=== PATIENT | female | born 1940 | race Caucasian/White ===

== ENCOUNTER 2018-12-13 11:06 | Day surgery (SDC) | payer MEDICARE, OTHER ==
[~2018-12-13] VITALS: Ht 157.5 cm; Wt 70.0 kg
[~2018-12-13 11:06] MED LIST: AMLO5 PO; ASPI325EC PO; Azor 5-20 MG T1 EACH PO; CHOL10002 PO; ERGO400 PO; FURO20; Lasix20 MG PO; Lovastatin20 MG PO; NEBI5 PO; OLME20 PO
[2018-12-13] MEDS ORDERED: ROPI.25 (12:10)
--- NOTE | 2018-12-13 13:14 | NUR ---
12/13/18 1314 Maryellen Arriola PT AND UPDATED OF DELAY IN HER START TIME DUE TO LONG CASES TODAY. WARM BLANKET GIVEN TO PT, CALL LIGHT IN REACH, BED IN LOW/LOCKED POSTION.
== END 2018-12-13 15:16 | disposition home or self-care (01) ==
LOC: ORSCSDS 11:06
PROVIDERS: Surgery
PROC: 0DBM8ZX Excision of Descending Colon, Via Natural or Artificial Opening Endoscopic, Diagnostic (ICD-10-PCS; principal; 2018-12-13 12:30)
PROC: 0DBH8ZX Excision of Cecum, Via Natural or Artificial Opening Endoscopic, Diagnostic (ICD-10-PCS; principal; 2018-12-13 12:30)
PROC: 0DBL8ZX Excision of Transverse Colon, Via Natural or Artificial Opening Endoscopic, Diagnostic (ICD-10-PCS; principal; 2018-12-13 12:30)
PROC: 0DBN8ZX Excision of Sigmoid Colon, Via Natural or Artificial Opening Endoscopic, Diagnostic (ICD-10-PCS; principal; 2018-12-13 12:30)
PROC: 3E0H8GC Introduction of Other Therapeutic Substance into Lower GI, Via Natural or Artificial Opening Endoscopic (ICD-10-PCS; principal; 2018-12-13 12:30)
DX: Z12.11 Encounter for screening for malignant neoplasm of colon (principal); Z86.010 Personal history of colon polyps; D12.0 Benign neoplasm of cecum; D12.3 Benign neoplasm of transverse colon; D12.4 Benign neoplasm of descending colon; D12.5 Benign neoplasm of sigmoid colon; K57.30 Diverticulosis of large intestine without perforation or abscess without bleeding; I10 Essential (primary) hypertension; K21.9 Gastro-esophageal reflux disease without esophagitis; Z79.899 Other long term (current) drug therapy
CPT/HCPCS: 88305; J7120

== ENCOUNTER 2019-12-20 09:13 | Day surgery (SDC) | payer MEDICARE, OTHER ==
[~2019-12-20] VITALS: Ht 157.5 cm; Wt 71.0 kg
[~2019-12-20 09:13] MED LIST changes: +ROPI.25
[2019-12-20] MEDS ORDERED: ATEN25 PO (09:55)
[2019-12-20] MEDS ORDERED: OLME20 PO (09:56)
--- NOTE | 2019-12-20 10:00 | NUR ---
12/20/19 1000 Dayday Salazar 1ST IV ATTEMP IN RIGHT HAND. VEIN BLEW. PT TOW.
== END 2019-12-20 11:14 | disposition home or self-care (01) ==
LOC: ORSCSDS 09:13
PROVIDERS: Surgery
PROC: 0DBN8ZX Excision of Sigmoid Colon, Via Natural or Artificial Opening Endoscopic, Diagnostic (ICD-10-PCS; principal; 2019-12-20 10:30)
DX: Z86.010 Personal history of colon polyps (principal); Z83.71 Family history of colonic polyps; D12.5 Benign neoplasm of sigmoid colon; K63.5 Polyp of colon; K57.30 Diverticulosis of large intestine without perforation or abscess without bleeding; E78.5 Hyperlipidemia, unspecified; I10 Essential (primary) hypertension; Z79.82 Long term (current) use of aspirin; Z79.899 Other long term (current) drug therapy
CPT/HCPCS: 88305; J2704; J7120

== ENCOUNTER 2021-07-19 06:07 | Day surgery (SDC) | payer MEDICARE, OTHER ==
[~2021-07-19] VITALS: Ht 157.5 cm; Wt 72.5 kg
[~2021-07-19 06:07] MED LIST changes: +ATEN25 PO; -ROPI.25; +ROPI.25 PO
--- NOTE | 2021-07-19 06:45 | NUR ---
PATIENT STATES HER BP IS HIGH TODAY BECAUSE IT ALWAYS RUNS HIGH IN MEDICAL SETTINGS. SHE STATES IT IS CONTROLLED WHEN SHE IS AT HOME AND AT REST. DENIES HEADACHE. WILL REPORT BP TO DR RECIO WHEN HE ARRIVES THIS MORNING.
--- NOTE | 2021-07-19 07:05 | NUR ---
DR RECIO NOTIFIED OF HIGH BP THIS MORNING. PATIENT IS TO PROCEED WITH PROCEDURE PLANNED PER DR RECIO.
--- NOTE | 2021-07-19 07:25 | NUR ---
07/19/21 0725 Fawn Lynch History, Chart, Medications and Allergies reviewed before start of procedure. Patient confirms NPO status and agrees with scheduled surgery. 3-LEAD EKG REVIEWED WITH PHYSICIAN PRIOR TO START OF PROCEDURE. MONITOR INTACT WITH CONTINUOUS PULSE OXIMETRY AND INTERMITTENT BP. PATIENT DETERMINED TO BE ASA APPROPRIATE FOR PROPOFOL SEDATION PRIOR TO START OF PROCEDURE BY DR. RECIO.
--- NOTE | 2021-07-19 08:21 | NUR ---
Patient up to Ambulate independently. Gait steady. Discharge instructions reviewed with patient. Patient verbalizes understanding. Copy given to patient to take home. Patient States Post-Procedure ride home has been arranged. Discharged via wheelchair to private car for ride home. ALL BELONINGS RETUNRNED TO PATIENT.
== END 2021-07-19 08:20 | disposition home or self-care (01) ==
LOC: ORSCMMR 06:07 → ORD 07:30 → ORSCMMR 08:20
PROVIDERS: Surgery
PROC: 0DBN8ZX Excision of Sigmoid Colon, Via Natural or Artificial Opening Endoscopic, Diagnostic (ICD-10-PCS; principal; 2021-07-19 07:30)
DX: Z15.09 Genetic susceptibility to other malignant neoplasm (principal); D12.5 Benign neoplasm of sigmoid colon; Z86.010 Personal history of colon polyps; Z80.0 Family history of malignant neoplasm of digestive organs; N18.30 Chronic kidney disease, stage 3 unspecified; E78.5 Hyperlipidemia, unspecified; I10 Essential (primary) hypertension; Z79.899 Other long term (current) drug therapy
CPT/HCPCS: 88305; J2704; J7120

== ENCOUNTER 2022-11-14 07:16 | Day surgery (SDC) | payer MEDICARE, OTHER ==
[~2022-11-14] VITALS: Ht 157.5 cm; Wt 72.1 kg
[2022-11-14] MEDS ORDERED: FURO20 (07:51)
== END 2022-11-14 09:22 | disposition home or self-care (01) ==
LOC: ORSCSDS 07:16
PROVIDERS: Surgery
PROC: 0DBM8ZX Excision of Descending Colon, Via Natural or Artificial Opening Endoscopic, Diagnostic (ICD-10-PCS; principal; 2022-11-14 08:30)
PROC: 0DBN8ZX Excision of Sigmoid Colon, Via Natural or Artificial Opening Endoscopic, Diagnostic (ICD-10-PCS; principal; 2022-11-14 08:30)
DX: D12.6 Benign neoplasm of colon, unspecified (principal); Z86.010 Personal history of colon polyps; D12.4 Benign neoplasm of descending colon; D12.5 Benign neoplasm of sigmoid colon; K57.30 Diverticulosis of large intestine without perforation or abscess without bleeding; I12.9 Hypertensive chronic kidney disease with stage 1 through stage 4 chronic kidney disease, or unspecified chronic kidney disease; N18.30 Chronic kidney disease, stage 3 unspecified; E78.5 Hyperlipidemia, unspecified; Z79.899 Other long term (current) drug therapy
CPT/HCPCS: 88305; J2704; J7120

== ENCOUNTER 2022-12-04 13:39 | Inpatient (IN) | payer MEDICARE, OTHER ==
[~2022-12-04] VITALS: Ht 160 cm; Wt 71.3 kg
[~2022-12-04 13:39] MED LIST changes: +FURO20 PO; +LOVA40 PO; -Lovastatin20 MG PO; -ROPI.25 PO; +ROPI1 PO
[2022-12-04 13:55] LABS: BASOPHILS ABSOLUTE AUTO 0.04 K/mm3 (0.00-0.23); BASOPHILS PERCENT AUTO 0 % (0-2); EOSINOPHILS ABSOLUTE AUTO 0.04 K/mm3 (0.00-0.68); EOSINOPHILS PERCENT AUTO 0 % (0-6); Hematocrit 38.4 % (33.0-51.0); Hemoglobin 12.5 g/dL (11.5-16.0); IMMATURE GRAN ABSOLUTE AUTO 0.04 K/mm3 (0.00-0.10); IMMATURE GRAN PERCENT AUTO 0 % (0-1); LYMPHOCYTES ABSOLUTE AUTO 2.61 K/mm3 (0.84-5.20); LYMPHOCYTES PERCENT AUTO 18 % (21-46); MONOCYTES ABSOLUTE AUTO 0.41 K/mm3 (0.16-1.47); MONOCYTES PERCENT AUTO 3 % (4-13); Mean Corpuscular HGB 30.1 pg (26.0-34.0); Mean Corpuscular HGB Conc 32.6 g/dL (31.5-36.5); Mean Corpuscular Volume 93 fL (80-100); Mean Platelet Volume 11.6 fL (9.1-12.4); NEUTROPHILS ABSOLUTE AUTO 11.15 K/mm3 (1.96-9.15); NEUTROPHILS PERCENT AUTO 78 % (41-73); Platelet Count 214 K/mm3 (150-400); RDW Coefficient Variation 13.9 % (11.7-14.2); RDW Standard Deviation 47.2 fL (35.1-46.3); Red Blood Cell Count 4.15 M/mm3 (3.80-5.20); White Blood Cell Count 14.29 K/mm3 (4.00-11.30)
[2022-12-04 14:12] LABS: Albumin, Blood 3.4 g/dL (3.4-5.0); Albumin/Globulin Ratio 1.1 (0.8-1.8); Bilirubin, Total 1.2 mg/dL (0.1-1.0); Bun/Creatinine Ratio 20.2 (12.0-20.0); Calcium, Blood 8.3 mg/dL (8.5-10.1); Creatinine, Blood 0.99 mg/dL (0.40-1.00); Globulin, Blood 3.2 g/dL (2.2-4.0); Potassium, Blood 3.1 mmol/L (3.5-5.5); Total Protein, Blood 6.6 g/dL (6.4-8.2)
--- NOTE | 2022-12-04 17:45 | NUR ---
phone call with Dr. Blackman - reviewed pt's vital signs. Dr. Blakcman with orders to infuse 500 mls of IV fluid and then recheck lactic acid in 1 hr. At this time pt doesn't meet SIRS criteria.
--- NOTE | 2022-12-04 19:31 | NUR ---
LATE ENTRY: PT ARRIVED TO MEDICAL FLOOR AT 1730, SHE IS ALERT AND ORIENTED X4. PT TRANSFERRED FROM ER [facility] TO MEDICAL FLOOR BED. SKIN ASSESSMENT COMPLETED WITH DARNELL Morris RN. NO SKIN ISSUES. PT HAS DAUGHTER GERRY, WHO IS ALSO POA, AT BEDSIDE. SHE IS CONTINENT OF URINE, AND TRANSFERS WITH SBA TO BSC. IV ACCESS TO RIGHT AC. CALL LIGHT WITHIN REACH, BED ALARM ON. LUNGS CLEAR. BOWEL TONES TYMPANIC, ABD DISTENDED. RATING PAIN 6/10. NAUSEOUS. NPO. RN WILL CONTINUE TO MONITOR AND GIVE REPORT TO ONCOMING NURSE.
[2022-12-05 05:18] LABS: BASOPHILS ABSOLUTE AUTO 0.03 K/mm3 (0.00-0.23); BASOPHILS PERCENT AUTO 0 % (0-2); EOSINOPHILS PERCENT AUTO 0 % (0-6); Hematocrit 37.7 % (33.0-51.0); Hemoglobin 12.2 g/dL (11.5-16.0); IMMATURE GRAN ABSOLUTE AUTO 0.03 K/mm3 (0.00-0.10); IMMATURE GRAN PERCENT AUTO 0 % (0-1); LYMPHOCYTES ABSOLUTE AUTO 0.59 K/mm3 (0.84-5.20); LYMPHOCYTES PERCENT AUTO 5 % (21-46); MONOCYTES ABSOLUTE AUTO 0.58 K/mm3 (0.16-1.47); MONOCYTES PERCENT AUTO 5 % (4-13); Mean Corpuscular HGB Conc 32.4 g/dL (31.5-36.5); Mean Corpuscular Volume 93 fL (80-100); Mean Platelet Volume 11.5 fL (9.1-12.4); NEUTROPHILS ABSOLUTE AUTO 10.28 K/mm3 (1.96-9.15); NEUTROPHILS PERCENT AUTO 89 % (41-73); Platelet Count 168 K/mm3 (150-400); RDW Coefficient Variation 14.4 % (11.7-14.2); RDW Standard Deviation 49.3 fL (35.1-46.3); Red Blood Cell Count 4.07 M/mm3 (3.80-5.20); White Blood Cell Count 11.51 K/mm3 (4.00-11.30)
[2022-12-05 05:42] LABS: Bilirubin, Total 3.3 mg/dL (0.1-1.0); Bun/Creatinine Ratio 23.1 (12.0-20.0); Calcium, Blood 7.9 mg/dL (8.5-10.1); Creatinine, Blood 0.95 mg/dL (0.40-1.00); Globulin, Blood 3.1 g/dL (2.2-4.0); Potassium, Blood 4.4 mmol/L (3.5-5.5); Total Protein, Blood 6.1 g/dL (6.4-8.2)
--- NOTE | 2022-12-05 07:45 | NUR ---
SHIFT SUMMARY NOC PT A/O X 4. PT ADMIT FROM ED WITH DX OF ACUTE PANCREATITIS BEFORE SHIFT CHANGE. PT HAD C/O OF N/V AND WAS MEDICATED PER EMAR. PT IS NPO. PT HAD AN EPISODE OF DESAT ON RA DURING SHIFT AND WAS PUT ON 3L/NC WITH SPO2 > 93%. PT HAS IV FLUIDS RUNNINGS @ 125 MLS/HR. PT HAD ELEVATED BP DURING AM SHIFT CHANGE AND ONCOMING NURSE IS NOTIFYING HOSPITALIST. PT HAD A CRITICAL LACTIC ACID OF 3.5 DOWN FROM 3.9 PREVIOUS NIGHT. WCTM. PT IS CURRENTLY IN BED WITH CARE TRANSFERRED TO DAY SHIFT RN.
--- NOTE | 2022-12-05 11:12 | NUR ---
"Spiritual Care | Pt. Request Pt. is awake in bed and welcomes my visit. Pt. is pleasant but displays evidence of abdominal discomfort. With empathy and a calming presence am able to establish raaport. Pt. verbalizes anticipation of an MRI and communicates confidence in the doctors and the technicians who will Identify the source of her problem. [place] with the Pt. Pt. verbalizes gratitude for the spiritual care visit."
--- NOTE | 2022-12-05 18:45 | NUR ---
SHIFT SUMMARY PT TRANSFERRED FROM MEDICAL FLOOR @ APPROX 1745 FOR HIGH BLOOD PRESSURES. PT SBP IN THE 210'S. PHONE CALL TO DR VILLALPANDO REGARDING PT BP. TELEPHONE ORDERS FOR IV HYDRALIZINE 10MG Q4H PRN AND PT'S HOME PO ATENOLOL 25MG DAILY TO START IN THE AM. PT C/O ABD IN THE MID UPPER QUADRANTS. PT MEDICATED WITH PRN ANALGESICS PER EMAR AND. RECEIVED IN THE REPORT THAT THE PT IS MILDLY CONFUSED AND HAD GOTTEN OUT OF BED WALKING DOWN THE HALLWAY. BED ALARM ON. PT ENCOURAGED TO CALL FOR ANY NEEDS AND PRIOR TO GETTING OUT OF BED. PT ON TITRATED FROM 3 TO 2L VIA NC. O2 SAT >92%. NO RESPIRATORY DISTRESS NOTED. PT AND DAUGHTER AT BEDSIDE, THEY BOTH STATE PT IS FORGETFUL AT HOME, BUT DAUGHTER IS UNSURE IF CONFUSION IS NORMAL FOR PT SHE DOES NOT LIVE IN TOWN. WILL CONTINUE TO CARE FOR PT AND REPORT TO ONCOMING RN.
--- NOTE | 2022-12-06 00:46 | NUR ---
ASSUMED PT CARE FROM CESAR HUANG AT 2300. PT IS VERY RESISTANT TO BEING MOVED STATING "YOU CAN'T JUST COME INTO MY HOUSE AND MAKE ME MOVE" ATTEMPTED TO REORIENT PT WITHOUT SUCCESS. PT MOVED TO PCU 9. PT CONTINUES TO STATE "YOU CAN'T JUST COME INTO MY HOUSE AND DO THIS" ALL ATTEMPTS OT REORIENT THE PT HAVE FAILED. PT INSISTING ON AMBULATING TO BATHROOM WITHOUT WAITING FOR IV POLE TO ACCOMPANY, WHILE ATTEMPTING TO PREVENT IV FROM BEING PULLED OUT PT STATES "I'M GOING TO BOP YOU" IV DISCONNECTED FOR AMBULATING. AFTER RETURNING TO BED PT REMOVING TELE LEADS, NC, AND PULSE OXIMETRY, REFUSING TO ALLOW REPLACEMENT. SECURITY IN TO SPEAK WITH PT, PT STATES "GO AWAY" AND CLOSES EYES. CONTINUES TO REFUSE MONITORS. DR. MCKEON CALLED, RECEIVED ORDER FOR ATIVAN IV. ATIVAN ADMINISTERED WITH ASSISTANCE OF SECURITY, PT ALLOWING TELEMETRY, NC, AND O2 TO BE REPLACED AT THIS TIME. WILL MONITOR.
[2022-12-06 05:10] LABS: BASOPHILS ABSOLUTE AUTO 0.03 K/mm3 (0.00-0.23); BASOPHILS PERCENT AUTO 0 % (0-2); EOSINOPHILS PERCENT AUTO 0 % (0-6); Hematocrit 35.9 % (33.0-51.0); Hemoglobin 11.8 g/dL (11.5-16.0); IMMATURE GRAN ABSOLUTE AUTO 0.08 K/mm3 (0.00-0.10); IMMATURE GRAN PERCENT AUTO 1 % (0-1); LYMPHOCYTES ABSOLUTE AUTO 1.05 K/mm3 (0.84-5.20); LYMPHOCYTES PERCENT AUTO 7 % (21-46); MONOCYTES ABSOLUTE AUTO 0.78 K/mm3 (0.16-1.47); MONOCYTES PERCENT AUTO 5 % (4-13); Mean Corpuscular HGB 30.1 pg (26.0-34.0); Mean Corpuscular HGB Conc 32.9 g/dL (31.5-36.5); Mean Corpuscular Volume 92 fL (80-100); Mean Platelet Volume 12.4 fL (9.1-12.4); NEUTROPHILS PERCENT AUTO 87 % (41-73); Platelet Count 173 K/mm3 (150-400); RDW Coefficient Variation 14.7 % (11.7-14.2); RDW Standard Deviation 49.8 fL (35.1-46.3); Red Blood Cell Count 3.92 M/mm3 (3.80-5.20); White Blood Cell Count 15.34 K/mm3 (4.00-11.30)
[2022-12-06 05:30] LABS: Albumin, Blood 2.8 g/dL (3.4-5.0); Albumin/Globulin Ratio 0.8 (0.8-1.8); Bilirubin, Total 4.1 mg/dL (0.1-1.0); Calcium, Blood 8.2 mg/dL (8.5-10.1); Creatinine, Blood 0.64 mg/dL (0.40-1.00); Globulin, Blood 3.4 g/dL (2.2-4.0); Potassium, Blood 4.3 mmol/L (3.5-5.5); Total Protein, Blood 6.2 g/dL (6.4-8.2)
--- NOTE | 2022-12-06 06:39 | NUR ---
PT HAS REMAINED CONFUSED DURING THIS SHIFT. PLEASENTLY CONFUSED AT TIMES, AT OTHER TIMES AGGITATED AND PARNOID. PT ATTEMPTING TO WALK DOWN HALLWAYS AND "GO SLEEP IN MY BED". PT IS NOT ABLE TO BE REDIRECTED. MEDICATED WITH IV ATIVAN, SEE EMAR. PT IS MORE COMPLIANT AFTER RECEIVING ATIVAN IS ALLOWS SELF TO BE RETURNED TO BED. MEDICATED FOR HYPERTENSION X 1, SEE EMAR. O2 SATS > 92% WHEN 02 ON, NEED FREQUENT REDIRECTING TO KEEP O2 ON. HR SR IN 90'S. DENIES CHEST PAIN. CALL LIGHT IN REACH. BED ALARM ON FOR SAFETY.
--- NOTE | 2022-12-06 17:54 | NUR ---
SHIFT SUMMARY PT REMAINS CONFUSED. PT CONTINUES TO JUMP OUT OF BED THROUGHOUT SHIFT AND RUN TO THE BATHROOM WITHOUT CALLING FOR HELP. AT TIMES, PT IS AGITATED AND STATES SHE WANTS TO LEAVE. PT EASIER TO REDIRECT THIS SHIFT. HR HAS REMAINED NSR. BP ELEVATED MOST OF SHIFT, BUT HAS IMPROVED THIS EVENING. PT FEBRILE AT 102.4 THAT DECREASED WITH MEDICATION ADMINISTRATION. PT STATES SHE FEELS BETTER TONIGHT AND HAS DENIED ANY PAIN. PT ADVANCED TO FULL LIQUID DIET AND TOLERATING WELL. WILL CONTINUE TO MONITOR AND REPORT TO ONCOMING RN. BED ALARM ON.
[2022-12-07 03:18] LABS: Hematocrit 33.6 % (33.0-51.0); Mean Corpuscular HGB 29.6 pg (26.0-34.0); Mean Corpuscular HGB Conc 32.7 g/dL (31.5-36.5); Mean Corpuscular Volume 91 fL (80-100); Mean Platelet Volume 12.8 fL (9.1-12.4); Platelet Count 158 K/mm3 (150-400); RDW Coefficient Variation 14.8 % (11.7-14.2); RDW Standard Deviation 49.7 fL (35.1-46.3); Red Blood Cell Count 3.71 M/mm3 (3.80-5.20); White Blood Cell Count 14.22 K/mm3 (4.00-11.30)
[2022-12-07 03:39] LABS: BAND PERCENT MAN 5 % (0-8); BASOPHILS PERCENT MAN 0 % (0-2); EOSINOPHILS PERCENT MAN 0 % (0-6); LYMPHOCYTES ABSOLUTE MAN 0.99 K/mm3 (0.84-5.20); LYMPHOCYTES PERCENT MAN 7 % (21-46); MONOCYTES ABSOLUTE MAN 0.85 K/mm3 (0.16-1.47); MONOCYTES PERCENT MAN 6 % (4-13); NEUTROPHILS ABSOLUTE MAN 12.37 K/mm3 (1.96-9.15); SEG NEUTROPHILS PERCENT MAN 82 % (41-73); TOTAL CELLS COUNTED 100
[2022-12-07 04:30] LABS: Albumin, Blood 2.3 g/dL (3.4-5.0); Albumin/Globulin Ratio 0.7 (0.8-1.8); Bilirubin, Total 2.4 mg/dL (0.1-1.0); Bun/Creatinine Ratio 19.4 (12.0-20.0); Calcium, Blood 7.8 mg/dL (8.5-10.1); Creatinine, Blood 0.67 mg/dL (0.40-1.00); Globulin, Blood 3.3 g/dL (2.2-4.0); Potassium, Blood 3.2 mmol/L (3.5-5.5); Total Protein, Blood 5.6 g/dL (6.4-8.2)
--- NOTE | 2022-12-07 05:33 | NUR ---
SHIFT SUMMARY: INTERMITTENT ORIENTATION X 1-3. COOPERATIVE AND PLEASANT. MEDICATED FOR ANXIETY X 2, SEE EMAR. UP TO BATHROOM TO VOID APROXIMATELY Q2H WITH WEAK GAIT. MEDICATED FOR CHRONIC DIARRHEA X 1 WITH GOOD RESULTS PER PT. NO ACUTE CHANGES OVER NIGHT. BED ALARM ON FOR SAFETY.
--- NOTE | 2022-12-07 17:11 | NUR ---
SHIFT SUMMARY PT REMAINS ALERT AND ORIENTATION HAS IMPROVED SINCE THIS AM. PT ANSWERING QUESTIONS APPROPRIATELY. HR REMAINS NSR. BP ELEVATED AT TIMES, BUT IMPROVES WITH MEDICATION ADMINISTRATION. PT DENIES ANY PAIN THIS SHIFT, BUT STATES NOT FEELING WELL OVERALL. SHE STATES SHE IS "SOMEWHAT ACHEY". PT MEDICATED WITH TYLENOL AND STATES IMPROVEMENT. PT UP WITH SBA TO BATHROOM NEEDED. BED ALARM ON FOR SAFETY. WILL CONTINUE TO MONITOR AND REPORT TO ONCOMING RN.
--- NOTE | 2022-12-07 18:40 | NUR ---
UPDATE PT SET OFF BED ALARM AND TRIES TO LEAVE ROOM. PT STATES SHE NEEDS TO GET HER "GOWN FROM THE NEXT ROOM". ATTEMPTED TO REDIRECT PT AND GET HER BACK TO BED. PT CONFUSED TO WHERE SHE IS AND WHY SHE CANNOT GO HOME. PT BACK TO BED. PT MEDICATED PER EMAR FOR ANXIETY. WILL CONTINUE TO MONITOR.
--- NOTE | 2022-12-07 23:35 | NUR ---
PT HAS BEEN ORIENTED TO SELF ONLY. UNABLE TO REDIRECT. UP TO BATHROOM TO VOID MULTIPLE TIMES, DECLINES ASSISTANCE, AMBULATING WITH SBA. MEDICATED FOR AGGITATED X 2, SEE EMAR DUE TO PT ATTEMPTING TO AMBULATE DOWN HALLWAY. O2 SATS MAINTAINED > 92% ON 2 LPM. HR SR/ST. NO COMPLAINTS OF CHEST PAIN. REPORT CALLED DUGLAS FERNANDEZ RN ON SURGICAL FLOOR.
--- NOTE | 2022-12-08 00:26 | NUR ---
PT ARRIVED TO THE FLOOR FROM PCU 9 AT 2352. THE PT IS AXO X1, TO SELF ONLY UPON TRANSFER. THE PT ARRIVES VIA HOSPITAL BED. THE PT IS ON 3L OXYGEN, O2 SATURATION IS 95%. THE PATIENT IS TACYPNENIC, BUT RESPIRATIONS SLOW WHEN RESTING. THE PATIENT ARRIVES WITH TELE IN PLACE, SINUS/SINUS TACH 90-100'S. PT ORIENTATED TO ROOM. PT IS NOW IN BED WITH THE BED IN THE LOWEST POSITION, BED ALARM AND CALL LIGHT WITHIN REACH. PT DENIES ANY PAIN, CHEST PAIN/PRESSURE UPON TRANSFER.
--- NOTE | 2022-12-08 04:55 | NUR ---
SHIFT SUMMARY; PT IS AXO X2, AND A STANDBY ASSIST TO THE BATHROOM. THE PT IS CONTINENT. CALLED LAST NIGHT DUE TO PT BEING FLUID VOLUME OVERLOADED AND HAVING UPPER AIR WAY WHEEZES, RT GAVE BREATHING TREATMENT W/LITTLE RELIEF. GAVE 1 TIME DOSE OF 40MG LASIX FOR FLUID VOLUME OVERLOAD. PT IS ON 3L NC, SATING 95%. TELE IN PLACE, SINUS RYTHM/SINUS TACH 90-100'S T/O THE NIGHT. PT HAS CRACKLES IN THE BASES OF BOTH LUNGS. PT IS IMPULSIVE AND GETS OUT OF BED WITHOUT ANY REGARD TO HER O2 LINE OR TELE, BED ALARM ON TO ENSURE PT DOES NOT FALL OVER O2 LINE. CURRENTLY THE PT IS SLEEPING IN BED WITH THE BED IN THE LOWEST POSITION AND THE CALL LIGHT AT BEDSIDE.
[2022-12-08 14:47] LABS: Albumin/Globulin Ratio 0.5 (0.8-1.8); Bilirubin, Total 1.4 mg/dL (0.1-1.0); Bun/Creatinine Ratio 16.8 (12.0-20.0); Creatinine, Blood 0.65 mg/dL (0.40-1.00); Globulin, Blood 3.7 g/dL (2.2-4.0); Potassium, Blood 3.1 mmol/L (3.5-5.5); Total Protein, Blood 5.7 g/dL (6.4-8.2)
--- NOTE | 2022-12-08 18:04 | NUR ---
SHIFT SUMMARY: PT A&O X2-3. PT PLEASANT AND COOPERATIVE WITH ALL CARE. PT REMAINS ON FULL LIQUID DIET AND TOLERATING WELL. PT HAS SOME WHEEZING IN LUNGS W/SOME CRACKLES IN BASES. ROCEPHIN AND AZITHROMYCIN D/C AND PLACED ON PO ABX. PT TO POSSIBLY HAVE CHOLECYSTECTOMY TOMORROW. PT TO BE NPO AFTER MIDNIGHT. REPEAT LIPASE DRAWN TODAY WHICH SHOWED MAJOR IMPROVEMENT/WNL. PT IS A SB ASSIST W/FWW. BED ALARM ON FOR SAFETY. PT ON 3 LITERS. POWERGLIDE FLUSHING W/O PAIN, SWELLING, OR REDNESS. NO C/O PAIN THIS SHIFT. CALL LIGHT IN REACH. BED IN LOWEST POSITION. WILL CONTINUE TO MONITOR.
--- NOTE | 2022-12-09 04:47 | NUR ---
AOX3, PLEASANT, VSS, UP TO TOILET MULTIPLE TIMES SBA WITH WALKER. NPO AT MIDNIGHT FOR POSSIBLE PROCEDURE TODAY. INCREASED O2 FROM 2L NC TO 4L NC DUE TO COMPLAINTS OF SOB, ABLE TO RELAX AND SLEEP FOLLOWING INCREASE OF O2. FREQUENT AUDIBLE WHEEZING. RESP THERAPIST AGREES THAT PT SOUNDS LIKE FLUID IS COLLECTING IN LUNGS. MD ORDERED CHEST XR TO ASSESS, AWAITING CXR COMPLETION TO MOVE FORWARD WITH DIURESING. CALLS APPROPRIATELY.
[2022-12-09 05:41] LABS: BASOPHILS ABSOLUTE AUTO 0.04 K/mm3 (0.00-0.23); BASOPHILS PERCENT AUTO 0 % (0-2); EOSINOPHILS ABSOLUTE AUTO 0.01 K/mm3 (0.00-0.68); EOSINOPHILS PERCENT AUTO 0 % (0-6); Hematocrit 31.6 % (33.0-51.0); Hemoglobin 10.3 g/dL (11.5-16.0); IMMATURE GRAN ABSOLUTE AUTO 0.23 K/mm3 (0.00-0.10); IMMATURE GRAN PERCENT AUTO 2 % (0-1); LYMPHOCYTES ABSOLUTE AUTO 0.92 K/mm3 (0.84-5.20); LYMPHOCYTES PERCENT AUTO 7 % (21-46); MONOCYTES ABSOLUTE AUTO 1.55 K/mm3 (0.16-1.47); MONOCYTES PERCENT AUTO 12 % (4-13); Mean Corpuscular HGB 29.4 pg (26.0-34.0); Mean Corpuscular HGB Conc 32.6 g/dL (31.5-36.5); Mean Corpuscular Volume 90 fL (80-100); Mean Platelet Volume 11.7 fL (9.1-12.4); NEUTROPHILS ABSOLUTE AUTO 10.57 K/mm3 (1.96-9.15); NEUTROPHILS PERCENT AUTO 79 % (41-73); Platelet Count 176 K/mm3 (150-400); RDW Coefficient Variation 14.6 % (11.7-14.2); RDW Standard Deviation 48.4 fL (35.1-46.3); White Blood Cell Count 13.32 K/mm3 (4.00-11.30)
[2022-12-09 05:54] LABS: Albumin, Blood 1.9 g/dL (3.4-5.0); Albumin/Globulin Ratio 0.5 (0.8-1.8); Bilirubin, Total 1.4 mg/dL (0.1-1.0); Bun/Creatinine Ratio 15.2 (12.0-20.0); Calcium, Blood 8.2 mg/dL (8.5-10.1); Creatinine, Blood 0.59 mg/dL (0.40-1.00); Total Protein, Blood 5.9 g/dL (6.4-8.2)
--- NOTE | 2022-12-09 17:44 | NUR ---
SHIFT SUMMARY PATIENT A&O X3 MOST OF DAY. PATIENT OCCASSIONALLY CONFUSED ABOUT WHERE SHE IS. PATIENT IMPULSIVE. PATIENT HAS INCREASED CONFUSION INTO THE EVENING. PATIENT IS A SBA WITH A FWW. PATIENT TITRATED TO ROOM AIR, SATURATING AT 95%. DURING WALK TO BATHROOM, PATIETN APPEARED SHORT OF BREATH, O2 SATUATION AT 87% WITH ACTIVITY. PATIENT PLACED ON 2L N/C AND RECOVERED TO 93%. PATIENT NPO AT MIDNIGHT FOR RHEA SCOTT TOMORROW, 12/10/22. DAUGHTER, ILIA GARRETT TO SIGN CONSENT. PATIENT IS EATING AND DRINKING WELL. PATIENT IS VERY PLEASANT AND COOPERATIVE [facility].
--- NOTE | 2022-12-10 05:25 | NUR ---
NPO SINCE MIDNIGHT FOR PENDING PROCEDURE TODAY. FREQUENT URINATION THROUGHOUT THE NIGHT. A0X2-3 DURING SHIFT, PLEASANT. SBA ASSIST TO BATHROOM. TOLERATED PO MEDS WITH WATER PRIOR TO NPO. VSS ON 0-2L OXYGEN NC. NO COMPLAINTS OF PAIN. NO EVENTS OVER NIGHT. BED ALARM ON DUE TO FORGETFULNESS, DOES NOT CALL APPROPRIATELY.
[2022-12-10 05:26] LABS: BASOPHILS ABSOLUTE AUTO 0.04 K/mm3 (0.00-0.23); BASOPHILS PERCENT AUTO 0 % (0-2); EOSINOPHILS ABSOLUTE AUTO 0.03 K/mm3 (0.00-0.68); EOSINOPHILS PERCENT AUTO 0 % (0-6); Hematocrit 30.8 % (33.0-51.0); Hemoglobin 10.2 g/dL (11.5-16.0); IMMATURE GRAN ABSOLUTE AUTO 0.14 K/mm3 (0.00-0.10); IMMATURE GRAN PERCENT AUTO 1 % (0-1); LYMPHOCYTES ABSOLUTE AUTO 1.11 K/mm3 (0.84-5.20); LYMPHOCYTES PERCENT AUTO 9 % (21-46); MONOCYTES ABSOLUTE AUTO 1.33 K/mm3 (0.16-1.47); MONOCYTES PERCENT AUTO 11 % (4-13); Mean Corpuscular HGB 29.3 pg (26.0-34.0); Mean Corpuscular HGB Conc 33.1 g/dL (31.5-36.5); Mean Corpuscular Volume 89 fL (80-100); Mean Platelet Volume 11.8 fL (9.1-12.4); NEUTROPHILS ABSOLUTE AUTO 9.48 K/mm3 (1.96-9.15); NEUTROPHILS PERCENT AUTO 78 % (41-73); Platelet Count 214 K/mm3 (150-400); RDW Coefficient Variation 14.5 % (11.7-14.2); RDW Standard Deviation 46.6 fL (35.1-46.3); Red Blood Cell Count 3.48 M/mm3 (3.80-5.20); White Blood Cell Count 12.13 K/mm3 (4.00-11.30)
[2022-12-10 05:45] LABS: Albumin, Blood 1.8 g/dL (3.4-5.0); Albumin/Globulin Ratio 0.4 (0.8-1.8); Bun/Creatinine Ratio 15.1 (12.0-20.0); Calcium, Blood 7.7 mg/dL (8.5-10.1); Creatinine, Blood 0.6 mg/dL (0.40-1.00); Phosphorus, Blood 2.5 mg/dL (2.5-4.9); Potassium, Blood 2.9 mmol/L (3.5-5.5); Total Protein, Blood 5.8 g/dL (6.4-8.2)
--- NOTE | 2022-12-10 10:57 | NUR ---
SURGERY PATIENT TAKEN TO DAY SURGERY FOR LAP CHOLY. FAMILY AT BEDSIDE WENT WITH PATIENT.
--- NOTE | 2022-12-10 11:05 | NUR ---
THE PATIENT WAS BROUGHT TODAY SURGERY FOR HER PROCEDURE.
--- NOTE | 2022-12-10 13:19 | NUR ---
12/10/22 1319 Filippo Ramsey PT ON SCHEDULED ANTIBIOTICS AND RECIEVED PRIOR TO ARRIVAL TO OR.
--- NOTE | 2022-12-10 14:53 | NUR ---
UPDATE PATIENT BACK TO ROOM FROM PACU AT 1445. PATIENT SETTLED INTO ROOM. PATIENT SBA TO THE BATHROOM. PATIENT ON ROOM AIR, A&O X3. PATIENT POWERGLIDE FLUSHED WITHOUT ISSUE. PATIENT FAMILY AT BEDSIDE. LAP SITES TO ABDOMEN X3. COVERED IN GAUZE, C/D/I.
--- NOTE | 2022-12-10 17:48 | NUR ---
SHIFT SUMMARY PATIENT DENIES PAIN, NAUSEA, AND SHORTNESS OF BREATH. PATIENT IS A SBA WITH FWW TO THE BATHROOM. PATIENT TAKEN FOR SURGERY AT 1100, BACK TO ROOM AT 1445, SEE NOTE. POST-OP VITALS DONE, VITALS STABLE. POWERGLIDE DRESSING CHANGED TODAY. PATIENT TOELRATED WELL. LINE DOES NOT DRAW. PATIENT ATE DINNER WITHOUT ISSUE. PATIENT FAMILY AT BEDSIDE FOR MOST OF SHIFT. PATIENT IS A&O 2-3. PATIENT FOLLOWS DIRECTIONS WELL AND IS EASILY REDIRECTED. POTASSIUM LOW, REPLACEMENT ORDERED AND ADMINISTERED. PATIENT IS VERY PLEASANT AND COOPERATIVE WITH CARE.
--- NOTE | 2022-12-11 04:57 | NUR ---
AOX2-3, FORGETFUL. REQUESTED NORCO X1. AMBULATES TO TOILET FREQUENTLY SBA WITH STEADY GAIT. GUAZE AND TEGADERM ON LAP EDMAR SITES, ALL CDI. CALL LIGHT IN PLACE, USES IT INTERMITTENTLY. VSS. Q4 VS CONTINUE INTO NEXT SHIFT.
[2022-12-11] MEDS ORDERED: ACET325 PO (12:08)
[2022-12-11] MEDS ORDERED: ALBU2.5V5 INH (12:10)
[2022-12-11] MEDS ORDERED: HYDR1TAB94 PO (12:11)
[2022-12-11] MEDS ORDERED: LEVO750 PO (12:15)
[2022-12-11] MEDS ORDERED: LOSA50 PO (12:15)
--- NOTE | 2022-12-11 13:03 | NUR ---
DISCHARGE PATIENT A&Ox4 PATIENT DISCHARGED TO HOME WITH FAMILY (SPOUSE AND DAUGHTER). PATIENT POST OP DAY 1 FROM LAP EDMAR. NO SIGNS OR SYMPTOMS OF INFECTION AT LAP SITES X4. VITAL SIGNS STABLE AND PATIENT REPORTS TOLERABLE MILD PAIN OF 3/10 (10MAX). IV ACCESS DC'd TO BILATERAL UPPER EXTREMITIES. EDUCATION PROVIDED FOR FOLLOW UP APPOINTMENTS AND NEW MEDICATIONS PRECRIBED. PATIENT PROVIDED WITH ADDITIONAL INFORMATION ABOUT DIAGNOSIS, INTERVENTIONS, AND MEDICATIONS UTILIZED DURING THIS ADMISSION. PATIENT AND FAMILY ALLOWED TIME TO ASK QUESTIONS AND VOICE CONCERNS. PATIENT TRANSPORTED VIA WHEELCHAIR BY STAFF TO VEHICLE AT BEDSIDE. PATIENT AND FAMILY EXPRESS SATISFACTION WITH CARE. PATIENT PROVIDED WITH HARD COPY OF NORCO PRESCRIPTION IN HAND.
[2022-12-14] MEDS ORDERED: ONDA4ODT MM (16:46)
== END 2022-12-11 12:45 | disposition home health service (06) | DRG 417 ==
LOC: ER 13:39 → MEDS 13:40 → PCU 12-05 11:30 → MEDS 12-05 11:30 → PCU 12-05 17:50 → MEDS 12-07 23:50
PROVIDERS: Emergency Medicine; Family Medicine; Surgery; ADMIT Internal Medicine
PROC: BF121ZZ Fluoroscopy of Gallbladder using Low Osmolar Contrast (ICD-10-PCS; 2022-12-10)
PROC: 0FT44ZZ Resection of Gallbladder, Percutaneous Endoscopic Approach (ICD-10-PCS; principal; 2022-12-10 12:00)
DX: K85.10 Biliary acute pancreatitis without necrosis or infection (principal); J18.9 Pneumonia, unspecified organism; J98.11 Atelectasis; E87.20 Acidosis, unspecified; I12.9 Hypertensive chronic kidney disease with stage 1 through stage 4 chronic kidney disease, or unspecified chronic kidney disease; N18.30 Chronic kidney disease, stage 3 unspecified; E78.5 Hyperlipidemia, unspecified; M19.90 Unspecified osteoarthritis, unspecified site; M81.0 Age-related osteoporosis without current pathological fracture; E87.6 Hypokalemia; G25.81 Restless legs syndrome; I16.0 Hypertensive urgency; E55.9 Vitamin D deficiency, unspecified; R94.5 Abnormal results of liver function studies; E80.6 Other disorders of bilirubin metabolism; K80.20 Calculus of gallbladder without cholecystitis without obstruction; Z90.49 Acquired absence of other specified parts of digestive tract; Z86.010 Personal history of colon polyps; Z79.899 Other long term (current) drug therapy; Z79.01 Long term (current) use of anticoagulants; Z98.890 Other specified postprocedural states; Z90.710 Acquired absence of both cervix and uterus; Z98.1 Arthrodesis status; Z90.721 Acquired absence of ovaries, unilateral
CPT/HCPCS: 36415; 71045; 74177; 74181; 74300; 80053; 82248; 83605; 83690; 83735; 84100; 84145; 85025; 87040; 88304; 93005; 93010; 94640; 94664; 94760; 96361; 96372; 96374-59; 96375; 96376; 97116; 97162; 97165; 97530; 97535; 99285-25; A9270; C1894; G0378; J0360; J0456; J0696; J1100; J1200; J1630; J1650; J1940; J2060; J2370; J2405; J2704; J2765; J2795; J3010; J3480; J7030; J7040; J7050; J7120; Q9967

== ENCOUNTER → 2023-06-16 | Outpatient (CLI) | payer MEDICARE, OTHER ==
[~2023-06-16] MED LIST changes: +ACET325 PO; +ALBU2.5V5 INH; +HYDR1TAB94 PO; +LEVO750 PO; +LOSA50 PO; +ONDA4ODT MM
== END ==
LOC: LAB 09:00 → LAB SHORT 09:00
DX: B35.1 Tinea unguium (principal)
CPT/HCPCS: 87102; 87106